=== PATIENT | female | born 1955 | race Caucasian/White ===

== ENCOUNTER 2018-02-22 04:02 | Inpatient (IN) ==
[2018-02-28] MEDS ORDERED: Acetaminophen 325 MG Tablet PO PRN (00:01)
[2018-02-28] MEDS ORDERED: Potassium Chlor 20 mEq Premix 20 MEQ/100 ML PIGGYBACK IV.SIG PRN (00:01)
[2018-02-28] MEDS ORDERED: niCARdipine Inj 25 MG in Sodium Chlor 0.9% Inj 240 ML IV.CONT PRN (00:01)
[2018-02-28] MEDS ORDERED: Magnesium Sulfate Inj 4 GM in Sodium Chlor 0.9% Inj 100 ML IV.SIG PRN (00:01)
[2018-02-28] MEDS ORDERED: Bisacodyl 10 MG Supp RECTAL PRN (00:01)
[2018-02-28] MEDS ORDERED: Chlorhexidine Gluconate 2% 1 Pack (2 Cloths) TOPICAL PRN ×2 (00:01→04:00)
[2018-02-28] MEDS ORDERED: Morphine Inj 4 MG/ML Vial IV.PUSH PRN ×2 (00:01)
[2018-02-28] MEDS ORDERED: Labetalol HCl Inj 100 MG/20 ML Vial IV.PUSH PRN (00:01)
[2018-02-28] MEDS ORDERED: Pantoprazole Inj 40 MG Vial IV.PUSH SCH (09:00)
[2018-02-28] MEDS ORDERED: Lisinopril 20 MG Tablet PO SCH (09:00)
[2018-02-28] MEDS ORDERED: Senna/Docusate Sodium 8.6/50 MG Tablet PO SCH (09:00)
[2018-02-28] MEDS ORDERED: Insulin Detemir Inj 1,000 UNIT/10 ML Vial SQ SCH (09:00)
[2018-02-28] MEDS ORDERED: traZODone 50 MG Tablet PO SCH (21:00)
== END 2018-02-27 20:17 | disposition home or self-care (01) ==
LOC: N05 04:02
PROVIDERS: ADMIT Hospitalist; ATTEND Hospitalist